=== PATIENT | female | born 1970 | race Caucasian/White ===

== ENCOUNTER 2017-09-21 07:52 | Day surgery (SDC) | payer OTHER ==
--- NOTE | 2017-09-14 20:37 | HP ---
HISTORY AND PHYSICAL: DATE OF ADMISSION/SURGERY: 09/21/17 SURGEON: Tiago Nicholson MD * (DICTATED BY DELPHINE ASTUDILLO) PROCEDURE: Right carpal tunnel release. CHIEF COMPLAINT: Right hand pain. 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 The pain has been going on for greater than 4 years. She complains of pain, numbness, and tingling in the right thumb, middle, and sometimes ring finger. She states the pain wakes her up at night and she has to shake it out. She has previously been seen for this problem. She states that using it makes the pain worse. Nothing really relieves the pain. She rates the pain as 6/10. She has tried physical therapy including a TENS unit. She states she had an injection, which was of no help and has tried nighttime bracing. Activities are worse with writing and gripping. She feels like she is dropping things. She is status post release and radial nerve repair. She does report swelling occasionally. PAST MEDICAL HISTORY: No current problems. PAST SURGICAL HISTORY: 1. section x3. 2. Neuroma excision. MEDICATIONS: Naproxen 500 mg twice daily as needed for pain. ALLERGIES: No known drug allergies. Denies any history of tape or adhesive allergies. FAMILY HISTORY: Sister with breast cancer, another sister with skin cancer. SOCIAL HISTORY: Tobacco use, she smokes 6 cigarettes a day. She rarely drinks alcohol. She denies any illicit drug use. REVIEW OF SYSTEMS: Positive for numbness and tingling all the time in her right hand. She endorses being able to walk a flight of stairs or a city block without any problems. She denies a history of DVT, PE or problems with anesthesia. Otherwise, a 14-point review of systems including HEENT, cardiothoracic, pulmonary, GI, , musculoskeletal, neuro, endocrine, hematologic, and infectious disease were negative. PHYSICAL EXAMINATION GENERAL: Ansley is a well-nourished, well-developed, 47-year-old female in no acute distress. She is alert and oriented x3. She has appropriate mood and affect. She ambulates without any limp. No gross neurological deficiencies. VITAL SIGNS: Height 68 inches, weight 158 pounds. Blood pressure 108/70, respiratory is 18, temperature 97.9. Pain level 6. BMI 24.0. HEENT: She is normocephalic, atraumatic. Pupils are equally round and reactive to light. Extraocular movements intact. NECK: Supple. No palpable cervical lymph nodes. Thyroid is smooth and nontender. PULMONARY: Lungs are clear to auscultation bilaterally with no wheezes, rales or rhonchi. CARDIAC: Regular rate and rhythm with no murmurs, rubs, or gallops. No pedal edema. 2+ radial pulses bilaterally. ABDOMEN: Soft, nontender. NEUROLOGIC: Sensation is intact distally. She does have decreased sensation in the medial nerve distribution of her right arm. MUSCULOSKELETAL: Right upper extremity, no soft tissue swelling or bruising. There is no atrophy. There is full painless range of motion of the wrist, hand , and elbow. She has positive Tinel's at the wrist. Positive compression test. She is tender over the carpal tunnel. She has negative Tinel's at the elbow. No tenderness at the elbow. STUDIES: X-rays taken on 07/22/[address] Nicholson and shows no acute abnormalities. IMPRESSION: Right carpal tunnel syndrome. PLAN: Ansley is scheduled to undergo right carpal tunnel release with Dr. Nicholson on 09/21/17. She will return to clinic in 7 to 10 days postop for followup and suture removal. Pain medication will be prescribed on the day of surgery. DEPLHINE ASTUDILLO [id number]/[facility] #: [id number] [facility] CENTERLeila
[~2017-09-21 07:52] MED LIST: Buffered Lidocaine 0.9% SYRIN* 5 ML/SYR SYRINGE INTRADERM ONE
[2017-09-21] MEDS ORDERED: Naloxone* 0.4 MG/ML 1 ML VIAL IV PRN (08:19)
[2017-09-21] MEDS ORDERED: Bupivacaine 0.25% SDV* 30 ML ONE (08:41)
[2017-09-21] MEDS ORDERED: Midazolam* 1 MG/ML 2 ML VIAL (2 MG) ONE ×2 (09:49→10:16)
[2017-09-21] MEDS ORDERED: fentaNYL* 50 MCG/ML 2 ML VIAL (100 MCG VIAL) ONE (09:49)
[2017-09-21] MEDS ORDERED: Propofol* 10 MG/ML 20 ML BTL IV PUSH ONE (09:50)
[2017-09-21] MEDS ORDERED: Lidocaine 2% PF * 5 ML VIAL ONE (09:53)
[2017-09-21] MEDS ORDERED: Ibuprofen TAB* 600 MG ONE (10:53)
[2017-09-21 11:40] VITALS: BP 100/67
--- NOTE | 2017-09-22 10:16 | OP ---
DATE OF OPERATION: 09/21/17 - SDS DATE OF : 70 SURGEON: Tiago Nicholson MD UMBRELLA TIPPER: None. ANESTHESIOLOGIST: Dr. Sterling. ANESTHESIA: Local MAC. PRE-OP DIAGNOSIS: Right carpal tunnel syndrome. POST-OP DIAGNOSIS: Right carpal tunnel syndrome. OPERATIVE PROCEDURE: Right open carpal tunnel release. INDICATIONS: Ansley has had progressive disease. We talked to her about risks and benefits, she wanted to proceed. ESTIMATED BLOOD LOSS: 2 mL. COMPLICATIONS: None. FINDINGS: As expected. DESCRIPTION OF PROCEDURE: Ansley was seen in the preoperative area. We came back to the operating room. The arm was prepped and draped in the usual fashion. A time-out was performed. I exsanguinated the arm with an Esmarch and then tourniquet was inflated to 250 mmHg. I made a 2 to 3 cm longitudinal incision in the typical location for an open carpal tunnel release. Dissection was carried down to the subcutaneous tissue and palmar fascia. The transverse carpal ligament was released just off the radial aspect of the hook of the hamate. The release was completed distally with the tenotomy scissors and proximally with a tenotomy scissors under direct visualization with the Micheline retractor retracting the skin and subcutaneous tissue. The release was checked. There was absolutely no compression on the nerve. The motor branch was visualized and was intact. The area was copiously irrigated. The skin was closed with 4-0 Monocryl suture. Wound was dressed with Xeroform, 4x4, sterile Webril, and an Hunter bandage. She was taken to the recovery room in stable condition. [id number]/[facility] #: [id number] MTDD
== END 2017-09-21 11:41 | disposition home or self-care (01) ==
LOC: OR 07:52
PROVIDERS: ATTEND Orthopaedic Surgery Hand Surgery
DX: G56.01 Carpal tunnel syndrome, right upper limb (principal); F17.210 Nicotine dependence, cigarettes, uncomplicated
CPT/HCPCS: 81025; A9270-GY; J2250; J2704; J3010

== ENCOUNTER 2019-08-31 07:17 | Emergency (ER) | payer OTHER ==
--- OUTSIDE RECORDS SUMMARY | 2019-08-31 07:33 | XMS REPORT | Continuity of Care Document ---
:1970 External Reference #:[id number] Author Name Tiago Nicholson MD (transmitted by agent of provider Melissa Napier) Address [address] [place] [address] Care Team Providers Name Role Phone Ophelia Cabrera N.P. 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 [phone] Problems Description No Information Available Social History Type Date Description Comments Sex Unknown ETOH Use Denies alcohol use Tobacco Use Start: Unknown Patient is a current smoker, smokes every day Smoking Status Reviewed: 08/17/19 Patient is a current smoker, smokes every day Exercise Type/Frequency Exercises sporadically Allergies, Adverse Reactions, Alerts Description No Known Drug Allergies Medications Active Medications SIG Qnty Indications Ordering Provider Date Naproxen 1 tablet with Unknown 500mg Tablets food by mouth twice a day History Medications No Active Medications Unknown 06/08/2019 - 08/17/2019 Immunizations Description No Information Available Vital Signs Date Vital Result Comment 08/17/2019 8:11am Height 69 inches 5'9" Weight 164.00 lb Heart Rate 97 /min BP Systolic 128 mmHg BP Diastolic 78 mmHg Body Temperature 97.7 F Pain Level 8 BMI (Body Mass Index) 24.2 kg/m2 06/08/2019 11:03am Height 69 inches 5'9" Weight 163.00 lb Heart Rate 84 /min BP Systolic 134 mmHg BP Diastolic 84 mmHg Pain Level 7 BMI (Body Mass Index) 24.1 kg/m2 Results Description No Information Available Procedures Description No Information Available Medical Devices Description No Information Available Encounters Type Date Location Provider Dx Diagnosis Office Visit 06/08/2019 [facility] Tiago Nicholson, G56.02 Carpal tunnel 10:30a at [place], left upper limb Assessments Date Code Description Provider 08/17/2019 G56.02 Carpal tunnel syndrome, left upper limb Tiago Nicholson MD 06/08/2019 G56.02 Carpal tunnel syndrome, left upper limb Tiago Nicholson MD Plan of Treatment Future Appointment(s):09/20/2019 1:00 pm - Tiago Nicholson MD at [facility] at [facility]/05/2019 9:30 am - Tiago Nicholson MD at [facility] at [id number]/17/2019 - Tiago Nicholson MDG56.02 Carpal tunnel syndrome, left upper limbFollow up:Follow up: 10-14 days postop Functional Status Description No Information Available Mental Status Description No Information Available Referrals Description No Information Available
[2019-08-31 07:47] VITALS: BP 107/71
[2019-08-31] MEDS ORDERED: Ibuprofen TAB* 600 MG PO ONE (07:55)
--- NOTE | 2019-08-31 08:00 | UC ---
Upper Extremity HPI - HPI Summary HPI Summary: SLIPPED AND FELL ON THE ICE AT WORK THIS MORNING. HE REACHED OUT WITH HER LEFT ARM TO CATCH HERSELF AND JAMMED HER WHOLE LEFT UPPER EXTREMITY. MOST OF HER PAIN IS IN THE WRIST AND SHOULDER. - History of Current Complaint Chief Complaint: UCUpperExtremity Stated Complaint: ARM/HEAD INJURY Time Seen by Provider: 08/31/19 07:36 Hx Obtained From: Patient Hx Last Menstrual Period: tubal ligation Onset/Duration: Sudden Onset, Lasting Hours, Still Present Severity Initially: Moderate Severity Currently: Moderate Pain Intensity: 10 Pain Scale Used: 0-10 Numeric Location Of Pain: Is Discrete @ - LEFT WRIST AND SHOULDER Character: Sharp Aggravating Factor(s): Movement Alleviating Factor(s): Rest Associated Signs And Symptoms: Positive: Swelling - MINIMAL Related History: Dominant Hand Right - Allergies/Home Medications Allergies/Adverse Reactions: Allergies Allergy/AdvReac Type Severity Reaction Status Date / Time No Known Allergies Allergy Verified 08/31/19 07:35 PMH/Surg Hx/FS Hx/Imm Hx Previously Healthy: Yes - Surgical History Surgical History: Yes Surgery Procedure, Year, and Place: x3 - [facility] [place]. neuroma excised - 2008 [place]. ovarian cyst removed age 21 [place]. uterine ablation 2014 [place]. right carpal tunnel release 2018 - Family History Known Family History: Positive: Unknown - Social History Alcohol Use: Occasionally Substance Use Type: None Smoking Status (MU): Current Every Day Smoker Type: Cigarettes Amount Used/How Often: 1/2 ppd for 20 years, down to 3 cigarettes a day Have You Smoked in the Last Year: Yes Review of Systems All Other Systems Reviewed And Are Negative: Yes Constitutional: Positive: Negative Skin: Positive: Negative Respiratory: Positive: Negative Cardiovascular: Positive: Negative Gastrointestinal: Positive: Negative Musculoskeletal: Positive: Arthralgia, Decreased ROM, Edema Physical Exam Triage Information Reviewed: Yes Appearance: Well-Appearing, No Pain Distress, Well-Nourished Vital Signs: Initial Vital Signs Temp 99.6 F 08/31/19 07:36 Pulse 94 08/31/19 07:36 Resp 18 08/31/19 07:36 BP 107/71 08/31/19 07:36 Pulse Ox 97 08/31/19 07:36 Vital Signs Reviewed: Yes Eyes: Positive: Conjunctiva Clear ENT: Positive: Hearing grossly normal Neck: Positive: Supple Respiratory: Positive: No respiratory distress, No accessory muscle use Cardiovascular: Positive: Pulses Normal Abdomen Description: Positive: Soft Musculoskeletal: Positive: ROM Limited @ - LEFT WRIST AND LEFT SHOULDER, Edema @ - MINIMAL EDEMA LEFT WRIST, Other: - DIFFUSELY TENDER LEFT WRIST AND LEFT SHOULDER Neurological: Positive: Alert Psychological: Positive: Age Appropriate Behavior Skin: Negative: Rashes Diagnostics - Radiology LEFT WRIST XRAYS Radiology Interpretation Completed By: Radiologist Summary of Radiographic Findings: PROBABLE NONDISPLACED FRACTURE OF THE SCAPHOID NECK. No standard instances Radiology Interpretation Completed By: Radiologist Summary of Radiographic Findings: NO ACUTE OSSEOUS INJURY Upper Extremity Course/Dx - Course Course Of Treatment: PROBABLE NONDISPLACED FRACTURE OF THE SCAPHOID NECK SEEN ON THE LEFT WRIST X- RAYS TODAY. THUMB SPICA SPLINT APPLIED BY RN. PATIENT PLACED IN A SLING FOR COMFORT. IBUPROFEN NEEDED. FOLLOW-UP WITH ORTHOPEDICS. - Differential Dx/Diagnosis Provider Diagnosis: Fracture of scaphoid of left wrist Discharge ED - Sign-Out/Discharge Documenting (check all that apply): Patient Departure All imaging exams completed and their final reports reviewed: Yes - Discharge Plan Condition: Stable Disposition: HOME Prescriptions: Ibuprofen TAB* [Motrin TAB* 600 MG] 1 tab PO Q6H PRN #30 tab PRN Reason: Pain Patient Education Materials: Scaphoid Fracture (ED) Forms: *Work Release Referrals: Lisa Romero RN [Primary Care Provider] - If Needed Tiago Nicholson MD [Medical Doctor] - 2 Days Additional Instructions: PROBABLE NONDISPLACED FRACTURE OF THE SCAPHOID NECK SEEN ON X-RAYS OF YOUR LEFT WRIST. LEFT SHOULDER X-RAY UNREMARKABLE. KEEP THE SPLINT ON AT ALL TIMES. SLING NEEDED FOR COMFORT. IBUPROFEN NEEDED. FOLLOW-UP WITH ORTHOPEDICS THIS WEEK. - Billing Disposition and Condition Condition: STABLE Disposition: Home
== END 2019-08-31 09:20 | disposition home or self-care (01) ==
LOC: UCEAST 07:17
DX: S62.002A Unspecified fracture of navicular [scaphoid] bone of left wrist, initial encounter for closed fracture (principal); W00.0XXA Fall on same level due to ice and snow, initial encounter; Y92.9 Unspecified place or not applicable; F17.210 Nicotine dependence, cigarettes, uncomplicated
CPT/HCPCS: 99213; A9270-GY; G0463

== ENCOUNTER 2019-09-05 06:48 | Day surgery (SDC) | payer OTHER ==
[~2019-09-05 06:48] MED LIST changes: +Acetaminophen TAB* 325 MG PO ONE; -Buffered Lidocaine 0.9% SYRIN* 5 ML/SYR SYRINGE INTRADERM ONE; +Buffered Lidocaine 1% SYRIN* 1 ML/SYRINGE INTRADERM ONE; +Lactated Ringers 1000 ML Bag* 1,000 ML IV SCH
[2019-09-05] MEDS ORDERED: Bupivacaine 0.25% SDV* 30 ML ONE (07:00)
[2019-09-05] MEDS ORDERED: Midazolam* 1 MG/ML 2 ML VIAL (2 MG) ONE (07:52)
[2019-09-05] MEDS ORDERED: Acetaminophen TAB* 325 MG ONE (08:01)
[2019-09-05] MEDS ORDERED: Propofol* 10 MG/ML 20 ML BTL ONE (08:19)
[2019-09-05] MEDS ORDERED: Lidocaine 2% PF * 5 ML VIAL ONE (08:19)
[2019-09-05] MEDS ORDERED: fentaNYL* 50 MCG/ML 2 ML VIAL (100 MCG VIAL) ONE (08:20)
[2019-09-05] MEDS ORDERED: Ketorolac INJ* 30 MG/ML 1 ML VIAL ONE (09:42)
[2019-09-05] MEDS ORDERED: Ondansetron INJ* 2 MG/ML VIAL ONE (09:42)
[2019-09-05] MEDS ORDERED: Dexamethasone IV* 4 MG/ML 1 ML (4 MG) ONE (09:42)
[2019-09-05] MEDS ORDERED: DiMENhydriNATE IV* 50 MG/ML VIAL IV PUSH PRN (10:01)
[2019-09-05] MEDS ORDERED: Ondansetron INJ* 2 MG/ML VIAL IV PRN (10:01)
[2019-09-05] MEDS ORDERED: Naloxone* 0.4 MG/ML 1 ML VIAL IV PRN (10:01)
[2019-09-05] MEDS ORDERED: diPHENhydraMINE IV* 50 MG/ML 1 ml VIAL (BENADRYL) IV PRN (10:01)
[2019-09-05] MEDS ORDERED: HYDROmorphone INJ1* 1 MG/ML SYRINGE IV PRN (10:01)
[2019-09-05] MEDS ORDERED: oxyCODONE TAB* 5 MG TAB ONE (10:36)
[2019-09-05] MEDS: oxyCODONE TAB* 5 MG TAB PO PRN ×2 (10:37→10:38)
[2019-09-05 11:18] VITALS: BP 115/47
--- NOTE | 2019-09-06 02:45 | OP ---
OPERATIVE REPORT: DATE OF OPERATION: 09/05/19 - SDS DATE OF : 70 SURGEON: Tiago Nicholson MD RN BONE MARROW TRANSPLANT: DELPHINE Schwartz ANESTHESIOLOGIST: Dr. Diggs. ANESTHESIA: General. PRE-OP DIAGNOSIS: Left carpal tunnel syndrome. POST-OP DIAGNOSIS: Left carpal tunnel syndrome. OPERATIVE PROCEDURE: Left endoscopic carpal tunnel release. INDICATIONS: Ms. Martínez has the aforementioned condition. We talked about treatment options, risks and benefits, she wanted to proceed. ESTIMATED BLOOD LOSS: 2 mL. COMPLICATIONS: None. FINDINGS: See above and below. DESCRIPTION OF PROCEDURE: Ms. Martínez was seen in the preoperative holding area. The correct site, side, and procedure were identified. We came back to the operating room. The arm was prepped and draped in the usual fashion and a time- out was performed. The arm was exsanguinated with the Esmarch and the tourniquet was inflated to 250 mmHg. I made a 1-cm incision just ulnar to the palmaris longus tendon. Dissection was carried down, the distal antebrachial fascia was spread transversely and a 2- pronged skin hook was placed underneath it. I dilated and opened the carpal tunnel and the MicroAire Endoscopic Carpal Tunnel System was introduced. Once I was in the appropriate location, I elevated the blade and the release was carried out from distal to proximal in standard fashion and confirmed the release. I then released the distal antebrachial fascia proximally. The wound was closed with a 4-0 Prolene suture. Soft dressing was applied and she was taken to the recovery room in stable condition. [id number]/[facility] #: [id number] [facility]
== END 2019-09-05 11:48 | disposition home or self-care (01) ==
LOC: OR 06:48
PROVIDERS: ATTEND Orthopaedic Surgery Hand Surgery
PROC: 01N54ZZ Release Median Nerve, Percutaneous Endoscopic Approach (ICD-10-PCS; principal; 2019-09-05 08:45)
DX: G56.02 Carpal tunnel syndrome, left upper limb (principal); F17.210 Nicotine dependence, cigarettes, uncomplicated
CPT/HCPCS: 81025; A9270-GY; J1100; J1885; J2250; J2405; J2704; J3010; J3490